=== PATIENT | male | born 1960 | race Caucasian/White ===

== ENCOUNTER 2020-05-24 19:46 | Emergency (ER) | payer BC, OTHER ==
[2020-05-24] MEDS ORDERED: Acetaminophen 325 MG Tab PO ONE (20:04)
--- NOTE | 2020-05-24 20:50 | CR ---
Chest: Portable view of the chest was obtained. Comparison: No prior chest imaging is available. Heart size and mediastinum are within normal limits for portable technique. Slight density within the left lung base is seen which is felt compatible with mild atelectasis. Lungs otherwise are clear. Bony structure shows previous cervical spine surgery. Impression: 1. Slight atelectasis within left lung base. 2. Nothing acute is otherwise appreciated on portable chest x-ray. Diagnostic code #2 This report was dictated in MDT
[2020-05-24] MEDS ORDERED: Dexamethasone 4 MG Tab PO ONE (20:58)
[2020-05-24] MEDS ORDERED: Dexamethasone 4 MG/ML SDV IVPUSH ONE (21:22)
[2020-05-24] MEDS ORDERED: Albuterol 6.7 GM Inhaler INH ONE (21:26)
--- NOTE | 2020-05-24 21:26 | EDM.PDOC ---
<Ferny Marks - Last Filed: 05/25/20 09:00> ED HPI GENERAL MEDICAL PROBLEM - General Chief Complaint: Respiratory Problem Stated Complaint: sob WEAKNESS Time Seen by Provider: 05/24/20 19:51 - Related Data Allergies Allergy/AdvReac Type Severity Reaction Status Date / Time No Known Allergies Allergy Verified 05/24/20 20:02 Home Meds: Home Meds Allopurinol [Zyloprim] 100 mg PO DAILY 05/24/20 [History] Ubidecarenone [Co Q-10] 0 mg PO DAILY 05/24/20 [History] dexAMETHasone [Dexamethasone] 8 mg PO BID #12 tab 05/25/20 [Rx] Course - Re-Assessments/Exams Free Text/Narrative Re-Assessment/Exam: 05/25/20 09:00 The patient called and the prescription was not at the pharmacy. I sent a prescription for dexamethasone to clinic pharmacy. Departure - Departure Disposition: Home, Self-Care 01 Clinical Impression: COVID-19 - Discharge Information Prescriptions: dexAMETHasone [Dexamethasone] 8 mg PO BID #12 tab Instructions: COVID-19 Frequently Asked Questions, COVID-19 Referrals: Sadie Blanco MD [Primary Care Provider] - Forms: ED Department Discharge Additional Instructions: You were seen in the emergency department today for fever, chills, cough, and shortness of breath since last Monday. Work-up included blood work, an EKG of your heart, and a chest x-ray. Results your blood work were consistent with a diagnosis of Covid19. Your chest x-ray was negative for any signs of pneumonia. A lower COVID test was also completed and this was found to be positive. While in the ER, you received Tylenol, and albuterol inhaler, and dexamethasone which is a steroid. The albuterol inhaler has been sent home with you. You may use 2 puffs every 4 hours as needed for shortness of breath. A prescription for dexamethasone has been sent to clinic pharmacy. Have someone pick this up for you and also purchase you have a home pulse oximeter to monitor your oxygen saturations. Recommend that you check your oxygen saturations intermittently throughout the day. If you are finding that you are maintaining below 90% oxygen saturation, you should return to the emergency department for reevaluation. You may continue to use Tylenol and ibuprofen as needed for fever and body aches. Stay adequately hydrated. Gatorade and Powerade with sugar will give you some calories as well as hydration with electrolytes. If you feel like you are worsening in any way, please not hesitate to return to the emergency department for reevaluation. <Raeann Garcia - Last Filed: 05/27/20 18:14> ED HPI GENERAL MEDICAL PROBLEM - General Source of Information: Reports: Patient History Limitations: Reports: No Limitations - History of Present Illness INITIAL COMMENTS - FREE TEXT/NARRATIVE: Patient is a 60-year-old male presenting to the emergency department with complaints of fever, chills, congestion, cough, fatigue, chest tightness, and loss of taste and smell. Symptoms started on Monday of last week which was approximately 7 days ago. He states his cough and chest tightness seems to have worsened today which is why he presents to the emergency department. He has been using [id number] Tylenol for fever, however he has not taken it since early this afternoon. Denies any significant chest pain, nausea, vomiting, or diarrhea. He has no underlying lung or respiratory conditions. Treatments REGISTERED MAIL CLERK: Reports: Other (see below) Other Treatments REGISTERED MAIL CLERK: tylenol- Past Medical History Cardiovascular History: Reports: High Cholesterol Musculoskeletal History: Reports: Arthritis, Back Pain, Chronic, Gout - Infectious Disease History Infectious Disease History: Reports: Shingles - Past Surgical History GI Surgical History: Reports: Hernia, Abdominal Other GI Surgeries/Procedures: repaired Social & Family History - Tobacco Use Smoking Status *Q: Former Smoker Used Tobacco, but Quit: Yes Month/Year Tobacco Last Used: 6 yrs - Caffeine Use Caffeine Use: Reports: None - Recreational Drug Use Recreational Drug Use: No ED ROS GENERAL - Review of Systems Review Of Systems: See Below Constitutional: Reports: Fever, Chills, Weakness, Fatigue HEENT: Reports: Sinus Problem Respiratory: Reports: Shortness of Breath, Cough. Denies: Wheezing Cardiovascular: Reports: No Symptoms. Denies: Chest Pain, Syncope Endocrine: Reports: No Symptoms GI/Abdominal: Reports: No Symptoms : Reports: No Symptoms Musculoskeletal: Reports: No Symptoms Skin: Reports: No Symptoms Neurological: Reports: No Symptoms Psychiatric: Reports: No Symptoms Hematologic/Lymphatic: Reports: No Symptoms Immunologic: Reports: No Symptoms ED EXAM, GENERAL - Physical Exam Exam: See Below General Appearance: Alert, WD/WN, No Apparent Distress Respiratory/Chest: No Respiratory Distress, Lungs Clear, Normal Breath Sounds, No Accessory Muscle Use, Chest Non-Tender Cardiovascular: Normal Peripheral Pulses, Regular Rate, Rhythm, No Edema, No Gallop, No JVD, No Murmur, No Rub GI/Abdominal: Normal Bowel Sounds, Soft, Non-Tender, No Organomegaly, No Distention, No Abnormal Bruit, No Mass Neurological: Alert, Oriented, CN II-XII Intact, Normal Cognition, Normal Gait, Normal Reflexes, No Motor/Sensory Deficits Psychiatric: Normal Affect, Normal Mood Skin Exam: Warm, Dry, Intact, Normal Color, No Rash EKG INTERPRETATION EKG Date: 05/24/20 Time: 20:23 Rhythm: NSR Rate (Beats/Min): 109 [place]: LAD-Left [place] Deviation P-Wave: Present QRS: Normal ST-T: Normal QT: Normal EKG Interpretation Comments: Sinus tachycardia 103 bpm Left atrial hypertrophy Left axis deviation (-23) QTC mildly prolonged Abnormal R wave progression with late transition EKG interpreted by Dr. Prisca CASE. Course - Vital Signs Last Recorded V/S: Last Vital Signs Temp 102.8 F H 05/24/20 20:31 Pulse 102 H 05/24/20 19:57 Resp 20 05/24/20 19:57 BP 128/84 05/24/20 19:57 Pulse Ox 96 05/24/20 21:54 - Orders/Labs/Meds Labs: Laboratory Tests 05/24/20 05/24/20 05/24/20 Range/Units 20:07 20:07 20:07 WBC 5.03 (4.23-9.07) K/mm3 RBC 4.99 (4.63-6.08) M/mm3 Hgb 15.2 (13.7-17.5) gm/dl Hct 45.0 (40.1-51.0) % MCV 90.2 (79.0-92.2) fl MCH 30.5 (25.7-32.2) pg MCHC 33.8 (32.2-35.5) g/dl RDW Std Deviation 42.2 (35.1-43.9) fL Plt Count 267 (163-337) K/mm3 MPV 9.3 L (9.4-12.3) fl Neut % (Auto) 72.6 H (34.0-67.9) % Lymph % (Auto) 17.3 L (21.8-53.1) % Terry % (Auto) 9.5 (5.3-12.2) % Eos % (Auto) 0 L (0.8-7.0) Baso % (Auto) 0.4 (0.1-1.2) % Neut # (Auto) 3.65 (1.78-5.38) K/mm3 Lymph # (Auto) 0.87 L (1.32-3.57) K/mm3 Terry # (Auto) 0.48 (0.30-0.82) K/mm3 Eos # (Auto) 0.00 L (0.04-0.54) K/mm3 Baso # (Auto) 0.02 (0.01-0.08) K/mm3 Manual Slide Review Normal smear D-Dimer, Quantitative 0.54 H (0.19-0.50) mg/L Sodium 132 L (136-145) mEq/L Potassium 3.9 (3.5-5.1) mEq/L Chloride 96 L (98-107) mEq/L Carbon Dioxide 22 (21-32) mEq/L Anion Gap 17.9 H (5-15) BUN 16 (7-18) mg/dL Creatinine 1.3 (0.7-1.3) mg/dL Est Cr Clr Drug Dosing 63.55 mL/min Estimated GFR (MDRD) 56 (>60) mL/min BUN/Creatinine Ratio 12.3 L (14-18) Glucose 110 (80-115) mg/dL Lactic Acid (0.4-2.0) mmol/L Calcium 9.3 (8.5-10.1) mg/dL Ferritin (26-388) ng/ml Total Bilirubin 0.5 (0.2-1.0) mg/dL AST 75 H (15-37) U/L ALT 72 H (16-63) U/L Alkaline Phosphatase 78 (46-116) U/L Lactate Dehydrogenase 297 H (85-227) U/L Troponin I < 0.017 (0.00-0.056) ng/mL C-Reactive Protein 16.9 H* (<1.0) mg/dL Total Protein 8.2 (6.4-8.2) g/dl Albumin 3.4 (3.4-5.0) g/dl Globulin 4.8 gm/dL Albumin/Globulin Ratio 0.7 L (1-2) SARS-CoV-2 RNA (LOCO) (NEGATIVE) 05/24/20 05/24/20 05/24/20 Range/Units 20:07 20:07 20:33 WBC (4.23-9.07) K/mm3 RBC (4.63-6.08) M/mm3 Hgb (13.7-17.5) gm/dl Hct (40.1-51.0) % MCV (79.0-92.2) fl MCH (25.7-32.2) pg MCHC (32.2-35.5) g/dl RDW Std Deviation (35.1-43.9) fL Plt Count (163-337) K/mm3 MPV (9.4-12.3) fl Neut % (Auto) (34.0-67.9) % Lymph % (Auto) (21.8-53.1) % Terry % (Auto) (5.3-12.2) % Eos % (Auto) (0.8-7.0) Baso % (Auto) (0.1-1.2) % Neut # (Auto) (1.78-5.38) K/mm3 Lymph # (Auto) (1.32-3.57) K/mm3 Terry # (Auto) (0.30-0.82) K/mm3 Eos # (Auto) (0.04-0.54) K/mm3 Baso # (Auto) (0.01-0.08) K/mm3 Manual Slide Review D-Dimer, Quantitative (0.19-0.50) mg/L Sodium (136-145) mEq/L Potassium (3.5-5.1) mEq/L Chloride (98-107) mEq/L Carbon Dioxide (21-32) mEq/L Anion Gap (5-15) BUN (7-18) mg/dL Creatinine (0.7-1.3) mg/dL Est Cr Clr Drug Dosing mL/min Estimated GFR (MDRD) (>60) mL/min BUN/Creatinine Ratio (14-18) Glucose (80-115) mg/dL Lactic Acid 1.3 (0.4-2.0) mmol/L Calcium (8.5-10.1) mg/dL Ferritin 2666 H (26-388) ng/ml Total Bilirubin (0.2-1.0) mg/dL AST (15-37) U/L ALT (16-63) U/L Alkaline Phosphatase (46-116) U/L Lactate Dehydrogenase (85-227) U/L Troponin I (0.00-0.056) ng/mL C-Reactive Protein (<1.0) mg/dL Total Protein (6.4-8.2) g/dl Albumin (3.4-5.0) g/dl Globulin gm/dL Albumin/Globulin Ratio (1-2) SARS-CoV-2 RNA (LOCO) Positive H (NEGATIVE) Meds: Medications Discontinued Medications Generic Name Dose Route Start Last Admin Trade Name Freq PRN Reason Stop Dose Admin Acetaminophen 975 mg 05/24/20 20:04 05/24/20 20:31 Tylenol PO 05/24/20 20:05 975 mg NOW ONE Administration Albuterol 0 gm 05/24/20 21:26 05/24/20 21:52 Proventil Hfa INH 05/24/20 21:27 2 puff ONETIME ONE Administration Dexamethasone 4 mg 05/24/20 20:58 Dexamethasone PO 05/24/20 20:59 ONETIME ONE Dexamethasone 4 mg 05/24/20 21:22 05/24/20 21:37 Dexamethasone IVPUSH 05/24/20 21:23 4 mg ONETIME ONE Administration - Re-Assessments/Exams Free Text/Narrative Re-Assessment/Exam: 05/24/20 21:52 Hematology was significant for d-dimer 0.54, however this would be considered a normal d-dimer at a 60-year-old male. Sodium slightly low at 132, chloride 96, anion gap 17.9, ferritin 2666, AST 75, ALT 72, lactate dehydrogenase 297, CRP 16.9. Troponin was negative. Lactic acid was normal. Patient is COVID posit joss. Chest x-ray was negative for any pneumonia. EKG was negative for any acute changes. Patient received dexamethasone 4 mg IV tonight in the emergency department. Case discussed with Dr. Prisca CASE. He recommend that we start the patient on dexamethasone 8 mg twice daily for 3 days. A prescription for this will be sent to clinic pharmacy. Also recommended that he purchase a home pulse oximeter to monitor his oxygen saturations at home. Discussed strict return precautions. Patient verbalized understanding. Discharge instructions as documented. Departure - Departure Time of Disposition: 21:53 Condition: Good - Discharge Information *PRESCRIPTION DRUG MONITORING PROGRAM REVIEWED*: No *COPY OF PRESCRIPTION DRUG MONITORING REPORT IN PATIENT CECILIA: No Sepsis Event Note (ED) - Evaluation Sepsis Screening Result: No Definite Risk
== END 2020-05-24 22:15 | disposition home or self-care (01) ==
LOC: JD.ED 19:46
DX: U07.1 COVID-19 (principal); M10.9 Gout, unspecified; R00.0 Tachycardia, unspecified; Z87.891 Personal history of nicotine dependence
CPT/HCPCS: 36415; 71045; 80053; 82728; 83605; 83615; 84484; 85025; 85379; 86140; 87635; 93005; 94640; 96374; 99284; A9270; J1100; 93010; 99283; U0002